=== PATIENT | female | born 1960 | race Two or more races ===

== ENCOUNTER 2023-12-23 14:22 | Emergency (ER) | payer MEDICARE ==
[~2023-12-23] VITALS: Ht 160 cm; Wt 57.4 kg
[2023-12-23 14:32] VITALS: BP 132/65; TEMP 97.8
[2023-12-23] MEDS: ipratropium/albuterol 3ml nebule NEB ONE (15:27)
[2023-12-23 15:30] VITALS: PULSE 69; RESP 18; O2SAT 98
[2023-12-23 15:37] VITALS: PULSE 68; RESP 16
[2023-12-23] MEDS ORDERED: MONT-48 PO (16:00)
[2023-12-23] MEDS ORDERED: PROM118S5 PO (16:01)
[2023-12-23] MEDS ORDERED: ALB0.5UD NEB (16:12)
== END 2023-12-23 16:21 | disposition home or self-care (01) ==
LOC: ER 14:23
DX: J45.901 Unspecified asthma with (acute) exacerbation (principal); Z88.8 Allergy status to other drugs, medicaments and biological substances
CPT/HCPCS: 71046; 94640; 99283

== ENCOUNTER 2024-01-07 16:36 | Emergency (ER) | payer MEDICARE ==
[~2024-01-07] VITALS: Ht 160 cm; Wt 56.8 kg
[~2024-01-07 16:36] MED LIST: ALB0.5UD NEB; MONT-48 PO
[2024-01-07 17:17] LABS: BASOPHILS # (AUTO) 0.1 X10'3 (0-0.2); BASOPHILS % (AUTO) 1.2 % (0-1); EOSINOPHILS # (AUTO) 0.1 X10'3 (0-0.9); EOSINOPHILS % (AUTO) 2.1 % (0-6); HEMATOCRIT 39.7 % (35.0-45.0); HEMOGLOBIN 13.2 g/dl (12.0-16.0); LYMPHOCYTES # (AUTO) 1.8 X10'3 (1.1-4.8); LYMPHOCYTES % (AUTO) 33.3 % (21-51); MEAN CORPUSCULAR HEMOGLOBIN 30.4 PG (27.0-31.0); MEAN CORPUSCULAR HGB CONC 33.4 g/dL (33.0-36.5); MEAN PLATELET VOLUME 9.5 FL (7.4-10.4); MONOCYTES # (AUTO) 0.4 X10'3 (0-0.9); MONOCYTES % (AUTO) 8.2 % (2-12); NEUTROPHILS % (AUTO) 55.2 % (42-75); PLATELET COUNT 220 X10'3 (140-440); RED BLOOD COUNT 4.36 X10'6 (4.20-5.60); RED CELL DISTRIBUTION WIDTH 13.4 % (11.5-14.5); WHITE BLOOD COUNT 5.4 X10'3 (4.5-11.0)
[2024-01-07 17:35] LABS: ALBUMIN 3.5 G/DL (3.4-5.0); ANION GAP 9 (8-16); BLOOD UREA NITROGEN 15 MG/DL (7-18); BUN/CREATININE RATIO 24.2 (10.0-20.0); CALCIUM 8.9 MG/DL (8.5-10.1); CHLORIDE 108 MMOL/L (99-107); CREATININE 0.62 MG/DL (0.40-0.90); GLUCOSE 99 MG/DL (70-104); POTASSIUM 3.8 MMOL/L (3.5-5.1); PRO BRAIN NATRIURETIC PEPTIDE < 30 PG/ML (0-125); SODIUM 143 MMOL/L (135-145); TOTAL CARBON DIOXIDE 26.2 MMOL/L (24-32); eCRCL 75 ML/MIN; eGFR > 90 ML/MIN
[2024-01-07 18:12] VITALS: BP 145/70; PULSE 56; RESP 16; O2SAT 100
[2024-01-07] MEDS ORDERED: iohexol 350MG/ML 100ml bottle IV ONE (18:22)
[2024-01-07 19:10] LABS: D-DIMER 0.31 MG/L FEU (0-0.50)
[2024-01-07] MEDS ORDERED: PRED20TA PO (19:18)
[2024-01-07] MEDS: dexamethasone sod phosphate 10mg/ml inj PO STA (19:59)
[2024-01-07] MEDS: dexamethasone 4mg tablet PO ONE (20:03)
[2024-01-07] MEDS: DEXAMETHASONE 6 MG TABLET PO ONE (20:04)
[2024-01-07 20:06] VITALS: TEMP 97.8
== END 2024-01-07 20:07 | disposition home or self-care (01) ==
LOC: ER 16:36
DX: J45.909 Unspecified asthma, uncomplicated (principal); Z88.8 Allergy status to other drugs, medicaments and biological substances
CPT/HCPCS: 36415; 71045; 80048; 83880; 84484; 85025; 85379; 93005; 99285; J1100; J3490; Q9967

== ENCOUNTER 2024-07-22 08:40 | Emergency (ER) | payer MEDICARE ==
[~2024-07-22] VITALS: Ht 165.1 cm; Wt 56.6 kg
[2024-07-22 08:59] VITALS: BP 152/89; PULSE 74; RESP 16; O2SAT 98
[2024-07-22] MEDS ORDERED: PRED10TA23 PO (09:50)
[2024-07-22] MEDS ORDERED: BENZ-38 PO (09:50)
[2024-07-22] MEDS ORDERED: AZIT500T PO (09:50)
[2024-07-22 10:07] VITALS: TEMP 98.6
== END 2024-07-22 10:10 | disposition home or self-care (01) ==
LOC: ER 08:41
DX: J22 Unspecified acute lower respiratory infection (principal); J45.909 Unspecified asthma, uncomplicated; Z88.5 Allergy status to narcotic agent
CPT/HCPCS: 71045; 99283